=== PATIENT | female | born 1970 | race Two or more races ===

== ENCOUNTER 2016-11-17 17:03 | Emergency (ER) | payer OTHER ==
[2016-11-17 17:59] VITALS: BP 115/75
--- NOTE | 2016-11-17 18:56 | UC ---
Throat Pain/Nasal Farhad HPI - HPI Summary HPI Summary: ST, ear pressure L>R with lots of nasal congestion starting 3 days ago with fairly rapid onset (minutes). had rheumatic fever as a child so they are careful about sore throats. Also frequently plugs her nose and blows to force air through her eustachian tubes and today noticed that some air was coming out of her L ear. Denies fever or trouble breathing. - History of Current Complaint Chief Complaint: UCRespiratory Stated Complaint: PAINFUL SWALLOWING, POST NASAL DRIP Time Seen by Provider: 11/17/16 18:28 Hx Obtained From: Patient Hx Last Menstrual Period: now ?: No Onset/Duration: Sudden Onset, Lasting Days Cough: None Associated Signs & Symptoms: Positive: Nasal Discharge. Negative: Fever, Vomiting, Rash - Allergies/Home Medications Allergies/Adverse Reactions: Allergies Allergy/AdvReac Type Severity Reaction Status Date / Time No Known Allergies Allergy Verified 11/17/16 17:59 PMH/Surg Hx/FS Hx/Imm Hx Previously Healthy: No - HX of eustachian tube dysfunction, PND - Surgical History Surgical History: Yes Surgery Procedure, Year, and Place: tubes in ears 2012. DEVIATED SEPTUM 08/2014 - Family History Known Family History: Negative: Blood Disorder - Social History Occupation: Employed Full-time Lives: With Family Alcohol Use: Daily Alcohol Amount: 1-2 glass wine a night Substance Use Type: Marijuana Smoking Status (MU): Never Smoked Tobacco Type: Cigarettes Amount Used/How Often: quit 18 years ago, smoked about 10 years total Review of Systems Constitutional: Negative Skin: Negative Eyes: Negative ENT: Sore Throat, Ear Ache, Nasal Discharge, Sinus Congestion Respiratory: Negative Cardiovascular: Negative Gastrointestinal: Negative Genitourinary: Negative Motor: Negative Neurovascular: Negative Musculoskeletal: Negative Neurological: Negative Psychological: Negative All Other Systems Reviewed And Are Negative: Yes Physical Exam Triage Information Reviewed: Yes Appearance: Well-Appearing, No Pain Distress, Well-Nourished Vital Signs: Initial Vital Signs Temp 97.7 F 11/17/16 17:54 Pulse 76 11/17/16 17:54 Resp 18 11/17/16 17:54 BP 115/75 11/17/16 17:54 Pulse Ox 100 11/17/16 17:54 Vital Signs Reviewed: Yes Eye Exam: Normal Eyes: Positive: Conjunctiva Inflamed ENT: Positive: Nasal congestion, TMs normal - R only, Other: - L TM flat, denson, with approx 2mm round hole in central area, approx 2 o'clock. No blood or discharge in the canal.. Negative: TM bulging, TM dull Dental Exam: Normal Neck exam: Normal Neck: Positive: Supple, Nontender, No Lymphadenopathy Respiratory Exam: Normal Respiratory: Positive: Chest non-tender, Lungs clear, Normal breath sounds, No respiratory distress, No accessory muscle use Cardiovascular Exam: Normal Cardiovascular: Positive: RRR, No Murmur Musculoskeletal Exam: Normal Neurological Exam: Normal Neurological: Positive: Alert Psychological Exam: Normal Skin Exam: Normal Throat Pain/Nasal Course/Dx - Differential Dx/Diagnosis Provider Diagnoses: Upper respiratory infection. L tympanic membrane rupture Discharge - Discharge Plan Condition: Stable Disposition: HOME Patient Education Materials: Upper Respiratory Infection (ED), Ruptured Eardrum (ED) Referrals: Thien Dave MD [Primary Care Provider] - Additional Instructions: Rapid strep negative. Please contact your ear, nose, throat specialist in [place] to follow up on the ear drum hole. In the mean time, do not swim in fresh water or put your head under water. Normal showers should be fine.
== END 2016-11-17 19:29 | disposition home or self-care (01) ==
LOC: UCEAST 17:03
DX: J06.9 Acute upper respiratory infection, unspecified (principal); H72.92 Unspecified perforation of tympanic membrane, left ear; F12.90 Cannabis use, unspecified, uncomplicated; Z87.891 Personal history of nicotine dependence
CPT/HCPCS: 87651; 99211; G0463

== ENCOUNTER 2016-11-24 08:15 | Emergency (ER) | payer OTHER ==
[2016-11-24 08:24] VITALS: BP 128/93
--- NOTE | 2016-11-24 09:56 | UC ---
jordan Koehler Timothy, scribed for Kierra Dennison MD on 11/24/16 at 0911 . Neck Pain HPI - HPI Summary HPI Summary: Robe Cramer is a 46 yo female presenting to [facility] with 8/10 right sided neck stiffness for the past several days, to the point where her ROM is restricted. She denies any injury or heavy lifting. Pt was seen last week for sinus issue and denies fever. She states the pain is worse when she swallows. She has self-medicated with aleve x3 with no relief. Pt states she sees PT for neck issues, notably possible degeneration in C5-C6, but usually on the left side. Her MHx includes anxiety, R hip Fx. - History of Current Complaint Chief Complaint: UCGeneralIllness Stated Complaint: HEAD AND NECK PAIN Time Seen by Provider: 11/24/16 08:52 Hx Obtained From: Patient Hx Last Menstrual Period: 11/21/16 Onset/Duration Of Injury/Symptoms: Days Mechanism Of Injury: No Known Trauma Timing: Constant Onset/Duration: Gradual Onset, Lasting Days, Still Present Severity: Moderate Pain Intensity: 8 Pain Scale Used: 0-10 Numeric Location: Discrete At: - R neck Character: Stiff Aggravating Factors: Movement, Other: - swallowing Associated Signs & Symptoms: Negative: Fever - Allergies/Home Medications Allergies/Adverse Reactions: Allergies Allergy/AdvReac Type Severity Reaction Status Date / Time No Known Allergies Allergy Verified 11/24/16 08:23 Home Medications: Home Medications Nortriptyline CAP* [Pamelor CAP*] 10 mg PO BEDTIME 11/24/16 [History Confirmed 11/24/16] PMH/Surg Hx/FS Hx/Imm Hx Previously Healthy: Yes - except see hpi Psychological History: Anxiety - Surgical History Surgical History: Yes Surgery Procedure, Year, and Place: tubes in ears 2012. DEVIATED SEPTUM 08/2014 - Family History Known Family History: Positive: Cardiac Disease, Hypertension Negative: Blood Disorder - Social History Alcohol Use: Daily Alcohol Amount: 1-2 glass wine a night Substance Use Type: Marijuana Smoking Status (MU): Never Smoked Tobacco Type: Cigarettes Amount Used/How Often: quit 18 years ago, smoked about 10 years total Review Of Systems Constitutional: Positive: Negative. Negative: Fever Skin: Positive: Negative Eyes: Positive: Negative ENT: Positive: Other - neck pain/rigidity Respiratory: Positive: Negative Cardiovascular: Positive: Negative Gastrointestinal: Positive: Negative Genitourinary: Positive: Negative Musculoskeletal: Positive: Arthralgia Neurological: Positive: Other Psychological: Positive: Negative All Other Systems Reviewed And Are Negative: Yes Physical Exam Triage Information Reviewed: Yes Appearance: Well-Nourished Vital Signs: Initial Vital Signs Temp 97.6 F 11/24/16 08:19 Pulse 88 11/24/16 08:19 Resp 18 11/24/16 08:19 BP 128/93 11/24/16 08:19 Pulse Ox 100 11/24/16 08:19 Vital Signs Reviewed: Yes Eye Exam: Normal ENT: Positive: Pharyngeal erythema - posterior redness and swelling, uvula midline. Sores on right posterior pharynx., Other: - no stridor or signs of immediate obstruction.. Negative: TMs normal - perforated post - lat left TM, bubble blister on right TM, Tonsillar swelling Neck exam: Other Neck: Positive: No Lymphadenopathy - no adenopathy appreciated, Other: - spasm general right neck, including trapezius. No point bony tenderness. Tenderness nonspecific right neck. Some tenderness over posterior belly right SCM. No olivia adenopathy. Painful to R neck if moves neck in any direction, jenna side to side. No stridor. No trismus. Respiratory Exam: Normal Respiratory: Positive: Chest non-tender, Lungs clear, Normal breath sounds, No respiratory distress Cardiovascular Exam: Normal Cardiovascular: Positive: RRR, No Murmur, Pulses Normal, Brisk Capillary Refill Abdominal Exam: Normal Abdomen Description: Positive: Nontender, No Organomegaly, Soft Bowel Sounds: Positive: Present Musculoskeletal Exam: Normal Musculoskeletal: Positive: Strength Intact Neurological Exam: Normal - nonfocal, grossly intact. Axillary nerve sensation present Psychological Exam: Normal - conversing easily and appropriately Skin Exam: Normal Skin: Negative: rashes Neck Pain Course/Dx - Course Course Of Treatment: oRbe Cramer is a 46 yo female presenting to [facility] with 8/0 right sided neck stiffness for the past several days. Pt medication list reviewed this visit. Answered questions posed by Pt to best ability. Pt was counseled that the best course of Tx will require transfer to [facility]. Pt is agreeable to this plan. Pt offered and encouraged EMS for transport, which Pt declines. She will present to [facility] by private car for further evaluation. D/w Dr. Posey. Diff dx includes several, including albeit not limited to torticollis, djd, pharyngitis, consider abscess (including deep space). - Differential Dx/Diagnosis Provider Diagnoses: neck pain. pharyngitis - Physician Notification/Consults Discussed Patient Care With: Eliseo Posey - Discussed Pt condition, accepts Pt for X-love to ED Time Discussed With Above Provider: 09:14 Instructed by Provider To: Transfer Discharge - Discharge Plan Condition: Stable Disposition: TRANS HIGHER LVL OF CARE FAC Discharge Disposition Comment: transfer to [facility] by private car for further evaluation The documentation as recorded by the jordan mueller Timothy accurately reflects the service I personally performed and the decisions made by me, Kierra Dennison MD.
== END 2016-11-24 09:48 | disposition short-term general hospital (02) ==
LOC: UCEAST 08:15
DX: M54.2 Cervicalgia (principal); J02.9 Acute pharyngitis, unspecified; F41.9 Anxiety disorder, unspecified; Z87.891 Personal history of nicotine dependence
CPT/HCPCS: 99212; G0463

== ENCOUNTER → 2016-11-24 09:59 | Emergency (ER) | payer OTHER ==
[~2016-11-24 09:59] MED LIST: Diazepam TAB(*) 5 MG PO ONE; Iohexol 300* (CONTRAST) 10 ML SDV IV ONE; Ketorolac INJ* 30 MG/ML 1 ML VIAL IV PUSH ONE
--- NOTE | 2016-11-24 11:17 | ED ---
Throat Pain/Nasal Congestion - HPI Summary HPI Summary: Pt here w/ dysphagia and Rt sided neck pain past couple of days. Rt sided neck pain goes from shoulder to base of neck - no position makes it better - worse w / overhead reaching and swallowing. No olivia injury to report. This was preceded by URI sx - 1 week ago, had ear pressure followed by headache which lead into nasal congestion. She's has PND since. Denies cough, fever, chills, N/ V/D, rash, visual change, confusion, syncope, numbness, tingling, weakness. She has a h/o eustachian tube dysfunction - has seen 4 ENT docs for this - has had septal repair, myringotomies, tried oral and nasal medications for swelling/ decongestion w/o relief. States sx of "constant ear pressure like I'm in an airplane all the time since flying to [place] 4 years ago - sometimes worse, sometimes better". 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 She has been to PT for this which controls it but never completely alleviates it. Took aleve last night and this morning and admits she feels a little better this morning. Last night also tried 's norco w/o relief. She took xanax to help her sleep which eventually helped. Has tried flexeril in the past but not recently. She takes nortriptyline nightly for "headaches" - only missed dose last night but otherwise, has been taking routinely. NOTE: reports when URI 1st started, she saw medical provider who dx'd her w/ viral URI. Rapid strep then was neg and pt denies h/o mono or recent sick contacts. She was born in [place] and came over at 3 y.o. - believes she is UTD with imms. 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 - - Allergies/Home Medications Allergies/Adverse Reactions: Allergies Allergy/AdvReac Type Severity Reaction Status Date / Time No Known Allergies Allergy Verified 11/24/16 08:23 PMH/Surg Hx/FS Hx/Imm Hx Previously Healthy: Yes Endocrine/Hematology History: Denies: Hx Diabetes, Hx Thyroid Disease, Autoimmune Disease Cardiovascular History: Denies: Hx Hypertension, Hx Pacemaker/ICD Respiratory History: Denies: Hx Asthma, Hx Chronic Obstructive Pulmonary Disease (COPD) GI History: Denies: Hx Ulcer History: Denies: Hx Renal Disease Musculoskeletal History: Reports: Hx Arthritis - cervical spine Sensory History: Denies: Hx Hearing Aid Neurological History: Reports: Hx Headaches - takes nortriptyline nightly Psychiatric History: Reports: Hx Anxiety - xanax PRN Denies: Hx Panic Disorder - Cancer History Hx Chemotherapy: No Hx Radiation Therapy: No - Surgical History Surgery Procedure, Year, and Place: tubes in ears 2012. DEVIATED SEPTUM 08/2014 - Immunization History Date of Tetanus Vaccine: unk Date of Influenza Vaccine: up to date Infectious Disease History: Yes Infectious Disease History: Denies: Hx Clostridium Difficile, Hx Hepatitis, Hx Human Immunodeficiency Virus (HIV), Hx of Known/Suspected MRSA, Hx Shingles, Hx Tuberculosis, Hx Known/ Suspected VRE, Hx Known/Suspected VRSA, History Other Infectious Disease, Traveled Outside the [place] in Last 30 Days - Family History Known Family History: Positive: Cardiac Disease, Hypertension Negative: Blood Disorder - Social History Occupation: Student Lives: With Family Alcohol Use: Daily Alcohol Amount: 1-2 glass wine a night Hx Substance Use: No Substance Use Type: Reports: None Hx Tobacco Use: Yes Smoking Status (MU): Former Smoker Type: Cigarettes Amount Used/How Often: quit 18 years ago, smoked about 10 years total Review of Systems Constitutional: Negative Negative: Fever, Chills, Fatigue Eyes: Negative Negative: Photophobia, Blurred Vision, Diplopia, Drainage, Erythema ENT: Other - see HPI Negative: Dental Pain Cardiovascular: Negative Negative: Palpitations, Chest Pain Respiratory: Negative Negative: Shortness Of Breath, Cough Gastrointestinal: Negative Negative: Abdominal Pain, Vomiting, Diarrhea, Nausea Positive: no symptoms reported. Negative: dysuria, discharge, frequency, flank pain Musculoskeletal: Other - see HPI Skin: Negative Negative: Rash, Bruising Neurological: Other - see HPI Negative: Headache, Weakness, Paresthesia, Numbness, Syncope, Slurred Speech Psychological: Other - anxiety last night - okay today - concerned All Other Systems Reviewed And Are Negative: Yes Physical Exam Triage Information Reviewed: Yes Vital Signs On Initial Exam: Initial Vitals Temp Pulse Resp BP Pulse Ox 98.2 F 80 20 151/92 100 11/24/16 10:01 11/24/16 10:01 11/24/16 10:01 11/24/16 10:01 11/24/16 10:01 Vital Signs Reviewed: Yes Appearance: Positive: Well-Appearing, No Pain Distress, Well-Nourished Skin: Positive: Warm, Dry - no rash on face/scalp Head/Face: Positive: Normal Head/Face Inspection - NTTP over sinuses and scalp Eyes: Positive: Normal, EOMI, MIRTA, Conjunctiva Clear. Negative: Conjunctiva Inflammed, Discharge ENT: Positive: Hearing grossly normal, Pharynx normal, Other - Lt TM w/ healing TM perforation - no erythema, no drainage, NTTP - pt admits to myringotomy and has had air release through this hole since tube fell out - healed TM perforation on Rt - same location as Lt - no erythema, no d/c, no hyperemia, NTTP, no blistering. Negative: Nasal congestion, Nasal drainage - no sores, TM bulging, TM dull, TM red, Tonsillar swelling, Tonsillar exudate, Trismus, Muffled/hoarse voice, Dental tenderness Dental: Negative: Percussion Tenderness @, Gross Decay/Caries @, Dental Fracture @, Abscess @, Cervical Lymphadenopathy, Bleeding Neck: Positive: Supple, Nontender, No Lymphadenopathy, Tenderness @ - Rt trapezius m TTP. Negative: Nuchal Rigidity, Enlarged Nodes @ Respiratory/Lung Sounds: Positive: Clear to Auscultation, Breath Sounds Present. Negative: Rales, Rhonchi, Stridor, Tracheal Deviation, Wheezes, Unable to speak in full sentences, Fatigue Cardiovascular: Positive: Normal, RRR, Pulses are Symmetrical in both Upper and Lower Extremities Abdomen Description: Positive: Nontender, No Organomegaly, Soft Bowel Sounds: Positive: Present Musculoskeletal: Positive: Normal, Strength/ROM Intact - FROM RT arm however triggers Rt neck pain, Limited @ - Cervical ROM limited w/ rotation d/t pain Neurological: Positive: Normal, Sensory/Motor Intact, Alert, Oriented to Person Place, Time, CN Intact II-III, Facial Symmetry, Speech Normal, Other - (-) Jewell, (-) [place] Psychiatric: Positive: Normal - Consuelo Coma Scale Coma Scale Total: 15 Diagnostics - Vital Signs Vital Signs Temp Pulse Resp BP Pulse Ox 11/24/16 10:25 98.5 F 67 16 142/85 100 11/24/16 10:01 98.2 F 80 20 151/92 100 - Laboratory Result Diagrams: 11/24/16 11:00 11/24/16 14:05 Lab Statement: Any lab studies that have been ordered have been reviewed, and results considered in the medical decision making process. Re-Evaluation - Re-Evaluation First Eval Change: Improved - moving neck better s/p toradol, diazepam - was also able to rest EENT Course/Dx - Course Course Of Treatment: Pt presents w/ Rt sided neck pain and dysphagia preceded by URI sx. Labs and imaging are w/o concern for abscess, mass - Rt maxillary sinus w/ thickening. Decided to start anbx for bacterial sinus infection and treat tendonitis of Rt paracervical muscles (CT shows tendon calcifications - chronic tendonitis). Advised to f/u w/ PCP and return to ED if danger s/sx present. Pt agrees w/ plan. - Diagnoses Provider Diagnoses: Cervical strain, Sinusitis, acute maxillary Discharge - Discharge Plan Condition: Stable Disposition: HOME Prescriptions: Amoxicillin/Clavulanate TAB* [Augmentin TAB 875*] 875 mg PO BID #20 tab Cyclobenzaprine TAB* [Flexeril 10 MG TAB*] 10 mg PO TID PRN #15 tab PRN Reason: Pain Patient Education Materials: Cervical Strain (ED), Sinusitis (ED) Referrals: Thien Dave MD [Primary Care Provider] - Additional Instructions: Sinusitis: Saline nasal washes, decongestants (ie. Afrin x 3 days max, psuedoephedrine, facial steam, etc) Complete antibiotics as directed Follow-up with ENT if symptoms persist Cervical strain: Heat with gentle stretches - takes breaks while working on computer Stay hydrated - avoid diuretics (ie. caffeine, alcohol) calcium/magnesium Return to PT Follow-up with PCP if symptoms persist or worsen
[2016-11-24 11:30] LABS: Hematocrit 46 % (35-47); Hemoglobin 15.3 g/dl (12.0-16.0); Mean Corpuscular HGB Conc 33 g/dl (31-36); Mean Corpuscular Hemoglobin 30 pg (27-31); Mean Corpuscular Volume 91 fL (80-97); Mean Platelet Volume 10 um3 (7.4-10.4); Red Blood Count 5.06 10^6/ul (4.0-5.4); Red Cell Distribution Width 12 % (10.5-15)
[2016-11-24 11:42] LABS: ALT 13 U/L (7-52); Albumin 4.8 g/dL (3.2-5.2); Alkaline Phosphatase 69 U/L (34-104); BUN/Creatinine Ratio 14.9 (8-20); Blood Urea Nitrogen 11 mg/dL (6-24); C Reactive Protein 69.29 mg/L (< 5.00); CO2 Carbon Dioxide 28 mmol/L (22-32); Calcium 10.1 mg/dL (8.6-10.3); Chloride 102 mmol/L (101-111); EGFR African American 107.7 (>60); EGFR Non-African American 83.8 (>60); Globulin 4.2 g/dL (2-4); Glucose 97 mg/dL (70-100); Sodium 137 mmol/L (133-145)
[2016-11-24 12:00] LABS: Mono Internal Control QC Line Present
[2016-11-24 13:18] LABS: Anion Gap 7 mmol/L (2-11)
--- NOTE | 2016-11-24 14:06 | RAD ---
HISTORY: Right-sided neck pain, dysphagia COMPARISONS: None TECHNIQUE: Multiple contiguous axial CT scans were obtained of the neck after the administration of nonionic intravenous contrast, with coronal and sagittal multiplanar reformations. FINDINGS: BRAIN AND ORBITS: The visualized brain and orbits are normal. PARANASAL SINUSES: There is mucosal thickening of the right axillary sinus SALIVARY GLANDS: The parotid glands, submandibular glands, sublingual glands are normal. NASAL CAVITY/NASOPHARYNX: The nasal cavity and nasopharynx are normal. ORAL CAVITY/OROPHARYNX: The oral cavity is obscured by streak artifact from dental amalgam. The visualized oral cavity and oropharynx are unremarkable. LARYNGEAL APPARATUS/HYPOPHARYNX: The laryngeal apparatus and hypopharynx are normal. UPPER AIRWAY/UPPER ESOPHAGUS: The visualized upper airway and esophagus are normal. LUNG APICES: The lung apices are clear. THYROID GLAND: The thyroid gland is normal. LYMPH NODES: There is no lymphadenopathy by size criteria. VASCULATURE: The vasculature is unremarkable. BONES AND SOFT TISSUES: There is focal dilatation of the prevertebral soft tissues at the atlantoaxial articulation anteriorly just right of midline measuring 0.8 cm in size There is mild anterolateral marginal osteophyte formation. There is uncovertebral and facet hypertrophy. There is mild narrowing of central canal C5-C6. OTHER: None. IMPRESSION: THERE IS FOCAL CALCIFICATION OF THE PREVERTEBRAL SOFT TISSUES AT C1-C2. THE DIFFERENTIAL INCLUDES ACUTE CALCIFIC PREVERTEBRAL TENDINITIS GIVEN THE HISTORY OF PAIN
[2016-11-24 14:47] VITALS: BP 126/79
== END | disposition home or self-care (01) ==
LOC: ED 09:59
DX: S16.1XXA Strain of muscle, fascia and tendon at neck level, initial encounter (principal); J01.00 Acute maxillary sinusitis, unspecified; X58.XXXA Exposure to other specified factors, initial encounter; Y93.89 Activity, other specified; Y92.9 Unspecified place or not applicable
CPT/HCPCS: 36415; 70491; 80053; 83605; 85025; 86140; 86308; 87651; 96374; 99282; 99283; A9270-GY; J1885; Q9967